=== PATIENT | male | born 1990 | race Caucasian/White ===

== ENCOUNTER 2016-11-09 11:57 | Emergency (ER) | payer BC, OTHER ==
[2016-11-09] MEDS ORDERED: FOLIC ACID 1 MG TAB PO ONE (12:00)
[2016-11-09] MEDS ORDERED: THIAMINE HCL 100 MG TAB PO ONE (12:00)
[2016-11-09] MEDS ORDERED: LORazepam 2 MG/ML INJ IVP ONE (12:00)
--- NOTE | 2016-11-09 12:05 | EDPHY ---
H & P Time Seen by Provider: 11/09/16 11:58 HPI/ROS: CHIEF COMPLAINT: Alcohol withdrawal HISTORY OF PRESENT ILLNESS: 26-year-old male arrives via ambulance from the [facility]. The patient however does not live at the [facility], he had gone to a nearby therapy session and was told to go to [facility] for possible alcohol detoxification assistance. He lives independently with 2 roommates.. States that he has been drinking heavily for the past 1 year and decided to quit suddenly with last drink of alcohol last evening. Complaining of nausea, anxiety, tremor. Denies hallucination. Denies seizure. Denies suicidal or homicidal ideation. REVIEW OF SYSTEMS: A ten point review of systems was performed and is negative with the exception of the items mentioned in the HPI PAST MEDICAL & SURGICAL HISTORY: No pertinent medical or surgical history SOCIAL HISTORY: Pain daily heavy alcohol use in FAMILY HISTORY: No pertinent family history PHYSICAL EXAM (Prior to examination, patient consented to physical exam, hands were washed and my usual and customary physical exam procedures followed) 1) GENERAL: Well-developed, well-nourished, alert and oriented. Appears anxious 2) HEAD: Normocephalic, atraumatic 3) HEENT: Pupils equal, round, reactive to light bilaterally. Sclera anicteric. 4) NECK: Full range of motion, no meningeal signs. 5) LUNGS: Clear auscultation bilaterally, no wheezes, no rhonchi, no retractions. 6) HEART: Regular rate and rhythm, no murmur, no heave, no gallop. 7) ABDOMEN: No guarding, no rebound, no focal tenderness, 8) MUSCULOSKELETAL: tremulous. No peripheral edema or discoloration. 9) BACK: no visual or palpable abnormality. 10) SKIN: No rash, no petechiae. 11) Psychiatric: Patient is oriented X 3, there is no agitation. He appears anxious. DIFFERENTIAL DIAGNOSIS: in no particular include but limited to hepatic encephalopathy, acute alcohol withdrawal, delirium tremens Smoking Status: Never smoked Constitutional: Initial Vital Signs Temperature (C) 36.8 C 11/09/16 11:57 Heart Rate 69 11/09/16 11:57 Respiratory Rate 20 11/09/16 11:57 Blood Pressure 137/80 H 11/09/16 11:57 O2 Sat (%) 100 11/09/16 11:57 O2 Delivery Mode Room Air Allergies/Adverse Reactions: No Known Allergies Allergy (Verified 11/09/16 12:08) Home Medications: Medication Instructions Recorded Lexapro 11/09/16 MDM/Departure - MDM Medications Given: Discontinued Medications Folic Acid (Folic Acid) 1 mg PO EDNOW ONE Stop: 11/09/16 12:01 Last Admin: 11/09/16 12:11 Dose: 1 mg Lorazepam (Ativan Injection) 2 mg IVP EDNOW ONE Stop: 11/09/16 12:01 Last Admin: 11/09/16 12:11 Dose: 2 mg Thiamine HCl (Vitamin B-1) 100 mg PO EDNOW ONE Stop: 11/09/16 12:01 Last Admin: 11/09/16 12:11 Dose: 100 mg ED Course/Re-evaluation: Patient was re-evaluated with serial exams most recently at 1:10 p.m. after 2 mg of IV Ativan. He is feeling improvement in symptoms. Heart rate in the 60s 70s, tremor has resolved. No hallucination. No seizure. Doubt delirium tremens. We discussed options including discharge home or [facility] with [facility]. He would like to [facility]. - Depart Disposition: Home, Routine, Self-Care Clinical Impression: Alcohol withdrawal Qualifiers: Complication of substance-induced condition: uncomplicated Qualified Code(s): F10.230 - Alcohol dependence with withdrawal, uncomplicated Condition: Good Instructions: Alcohol Withdrawal (ED) Referrals: [facility] [Outside] - As per Instructions
[2016-11-09 12:10] VITALS: PULSE 69
[2016-11-09] MEDS ORDERED: CHLORDIAZEPOXIDE 25MG PREPK#6 BTL TAKEHOME ONE (13:19)
[2016-11-09 13:27] VITALS: BP 121/76; RESP 16; TEMP 98.6; O2SAT 94
== END 2016-11-09 13:46 | disposition home or self-care (01) ==
LOC: EDUNIT#
DX: F10.230 Alcohol dependence with withdrawal, uncomplicated (principal)
CPT/HCPCS: 96374; J2060

== ENCOUNTER 2017-01-18 23:27 | Emergency (ER) | payer BC ==
[2017-01-18 23:33] VITALS: TEMP 98.2
[2017-01-19] MEDS ORDERED: chlordiazePOXIDE 25 MG CAP PO ONE (00:10)
[2017-01-19] MEDS ORDERED: LORazepam 2 MG/ML INJ IVP ONE ×2 (00:10→02:28)
[2017-01-19] MEDS ORDERED: NS 1,000 ML IV ONE (00:10)
[2017-01-19 00:33] LABS: % IMMATURE GRANULYOCYTES 0.2 % (0.0-1.1); ABSOLUTE IMMATURE GRANULOCYTES 0.01 10^3/uL (0.00-0.10); ADD DIFF? NO; ADD MORPH? NO; ADD SCAN? NO; ATYPICAL LYMPHOCYTE FLAG 0 (0-99); FRAGMENT RBC FLAG 0 (0-99); HEMATOCRIT 44.7 % (40.0-51.0); HEMOGLOBIN 16.2 g/dL (13.7-17.5); LEFT SHIFT FLG 0 (0-99); LIPEMIA HEMOLYSIS FLAG 90 (0-99); MEAN CELL HEMOGLOBIN 32.3 pg (27.9-34.1); MEAN CELL HEMOGLOBIN CONCENTR. 36.2 g/dL (32.4-36.7); MEAN PLATELET VOLUME 9.5 fL (8.7-11.7); PLATELET CLUMPS FLAG 0 (0-99); PLATELET COUNT 224 10^3/uL (150-400); RED BLOOD CELL COUNT 5.02 10^6/uL (4.40-6.38)
[2017-01-19 00:50] LABS: ALANINE AMINOTRANSFERASE 109 IU/L (21-72); ALBUMIN 4.8 g/dL (3.5-5.0); ALKALINE PHOSPHATASE 70 IU/L (38-126); ANION GAP 23 mEq/L (8-16); ASPARTATE AMINOTRANSFERASE 149 IU/L (17-59); BILIRUBIN,TOTAL 1.1 mg/dL (0.1-1.4); CALCIUM 9.7 mg/dL (8.5-10.4); CARBON DIOXIDE 15 mEq/l (22-31); CHLORIDE 103 mEq/L (97-110); CREATININE 0.8 mg/dL (0.7-1.3); GLOMERULAR FILTRATION RATE > 60; GLUCOSE 103 mg/dL (70-100); POTASSIUM 4.5 mEq/L (3.5-5.2); SODIUM 141 mEq/L (134-144); TOTAL PROTEIN 7.1 g/dL (6.3-8.2)
[2017-01-19] MEDS ORDERED: 1/2 NS IV SCH (01:15)
[2017-01-19] MEDS ORDERED: D5W IV SCH (01:15)
[2017-01-19] MEDS ORDERED: CHLORDIAZEPOXIDE 25MG PREPK#6 BTL TAKEHOME ONE (03:40)
[2017-01-19 03:41] VITALS: BP 140/82; PULSE 76; RESP 16; O2SAT 95
--- NOTE | 2017-01-19 03:45 | EDPHY ---
H & P Stated Complaint: med clear for detox Time Seen by Provider: 01/19/17 00:18 HPI/ROS: HPI The patient presents with concern for alcohol withdrawal, his last drink was earlier today and he drinks about half a L of hard alcohol daily. He has history of prior withdrawal and says he feels shaky and anxious, those denies palpitations. His symptoms have been constant and getting progressively worse. He would like to go to the [facility].. He has not had any seizure. REVIEW OF SYSTEMS Constitutional: No fever, no chills. Eyes: No discharge. ENT: No sore throat. Cardiovascular: No chest pain, no palpitations. Respiratory: No cough, no shortness of breath. Gastrointestinal: No abdominal pain, no vomiting. Genitourinary: No hematuria. Musculoskeletal: No back pain. Skin: No rashes. Neurological: No headache. PMHx: History of alcohol withdrawal Soc Hx: Alcohol abuse PHYSICAL General Appearance: Alert, no distress Eyes: Pupils equal and round no pallor or injection ENT, Mouth: Mucous membranes moist Respiratory: There are no retractions, lungs are clear to auscultation Cardiovascular: Regular rate and rhythm Gastrointestinal: Abdomen is soft and non-tender, no masses, bowel sounds normal Neurological: A&O, moves all extremities, hand tremor is present Skin: Warm and dry, no rashes Musculoskeletal: Neck is supple non tender Extremities: symmetrical, full range of motion Psychiatric: Patient is oriented X 3, there is no agitation Source: Patient Exam Limitations: No limitations - Personal History Current Tetanus/Diphtheria Vaccine: Unsure Current Tetanus Diphtheria and Acellular Pertussis (TDAP): Unsure - Medical/Surgical History Hx Asthma: No Hx Chronic Respiratory Disease: No Hx Diabetes: No Hx Cardiac Disease: No Hx Renal Disease: No Hx Cirrhosis: No Hx Alcoholism: Yes Hx HIV/AIDS: No Hx Splenectomy or Spleen Trauma: No Other PMH: anxiety, ETOH - Social History Smoking Status: Never smoked Constitutional: Initial Vital Signs Temperature (C) 36.8 C 01/18/17 23:31 Heart Rate 92 01/18/17 23:31 Respiratory Rate 18 01/18/17 23:31 Blood Pressure 140/75 H 01/18/17 23:31 O2 Sat (%) 97 01/18/17 23:31 O2 Delivery Mode Room Air Allergies/Adverse Reactions: No Known Allergies Allergy (Verified 01/18/17 23:31) Home Medications: Medication Instructions Recorded Lexapro 11/09/16 Medical Decision Making Differential Diagnosis: This is a 26-year-old male with history of alcohol abuse who presents with symptoms of alcohol withdrawal after stopping drinking his usual 0.5 L of alcohol daily. He does have a hand tremor on exam and states that he is feeling anxious. Differential diagnosis includes alcohol withdrawal, electrolyte disturbance, alcoholic ketoacidosis, pancreatitis. In the emergency room, the patient was given IV fluids. He required several doses of Ativan IV and received Librium by mouth. Labs were checked and did reveal anion gap acidosis thought to be related to alcoholic ketoacidosis. Because of this he was switched to D5 NS. He was able to tolerate fluids by mouth as well. He did have a transaminitis which I attribute to his alcohol use. Repeat chemistries show closing of his anion gap. Given that he is able to tolerate fluids and food by mouth, he is suitable for discharge. [facility] is [facility] the [facility] and we will send him with Librium. - Data Points Laboratory Results: Laboratory Results 01/19/17 00:25 01/19/17 00:25 Medications Given: Discontinued Medications Chlordiazepoxide (Librium 25 Mg Prepack#6) 1 btl TAKEHOME EDNOW ONE Stop: 01/19/17 03:41 Last Admin: 01/19/17 03:46 Dose: 1 btl Chlordiazepoxide HCl (Librium) 50 mg PO EDNOW ONE Stop: 01/19/17 00:11 Last Admin: 01/19/17 00:20 Dose: 50 mg Sodium Chloride (Ns) 1,000 mls @ 0 mls/hr IV ONCE ONE; Wide Open PRN Reason: Protocol Stop: 01/19/17 00:11 Last Admin: 01/19/17 00:20 Dose: 1,000 mls Dextrose/Sodium Chloride (D5w 1/2 Ns) 2,000 mls @ 1,000 mls/hr IV CONT YELENA Stop: 07/18/17 01:14 Last Admin: 01/19/17 01:26 Dose: 2,000 mls Lorazepam (Ativan Injection) 1 mg IVP EDNOW ONE Stop: 01/19/17 00:11 Last Admin: 01/19/17 00:21 Dose: 1 mg Lorazepam (Ativan Injection) 1 mg IVP EDNOW ONE Stop: 01/19/17 02:29 Last Admin: 01/19/17 02:32 Dose: 1 mg Departure - Departure Disposition: Home, Routine, Self-Care Clinical Impression: Alcohol withdrawal, Alcoholic ketoacidosis, Transaminitis Condition: Good Instructions: Chlordiazepoxide (By mouth), Alcohol Withdrawal (ED) Referrals: [facility] [Outside] - As per Instructions
== END 2017-01-19 04:09 | disposition home or self-care (01) ==
DX: F10.239 Alcohol dependence with withdrawal, unspecified (principal); E87.2 Acidosis; R74.0 Nonspecific elevation of levels of transaminase and lactic acid dehydrogenase [LDH]
CPT/HCPCS: 82947-QW; 96374; J2060

== ENCOUNTER 2017-02-01 15:25 | Emergency (ER) | payer BC ==
[2017-02-01] MEDS ORDERED: chlordiazePOXIDE 25 MG CAP PO ONE (16:20)
--- NOTE | 2017-02-01 16:46 | EDPHY ---
H & P Stated Complaint: ETOH w/d, 1 drink 1 hour [employer] Time Seen by Provider: 02/01/17 15:55 HPI/ROS: CHIEF COMPLAINT: requesting detox HISTORY OF PRESENT ILLNESS: 26-year-old male presents to the emergency department requesting detox. Patient states he has been drinking heavily for the last 2 years. He reports symptoms of alcohol withdrawal with shakiness, nausea. Patient denies history of alcohol withdrawal seizures. Patient reports he has been drinking 10 drinks daily, last drink was 1 hour prior to arrival. He is [facility]. Patient denies auditory or visual hallucinations. Patient denies chest pain or shortness of breath. He denies abdominal pain. REVIEW OF SYSTEMS: A comprehensive 10 point review of systems is otherwise negative aside from elements mentioned in the history of present illness. Source: Patient Exam Limitations: No limitations - Personal History Current Tetanus/Diphtheria Vaccine: Unsure - Medical/Surgical History Hx Asthma: No Hx Chronic Respiratory Disease: No Hx Diabetes: No Hx Cardiac Disease: No Hx Renal Disease: No Hx Cirrhosis: No Hx Alcoholism: Yes Hx HIV/AIDS: No Hx Splenectomy or Spleen Trauma: No Other PMH: anxiety, ETOH - Family History Significant Family History: No pertinent family hx - Social History Smoking Status: Never smoked Alcohol Use: Heavy - Physical Exam Exam: Physical Exam Gen: Alert and Oriented, NAD HEENT: PERRL, moist mucous membranes NECK: no meningismus CV: regular rate and regular rhythm PULM: CTAB, no wheezes ABDOMEN: soft, non tender to palpation, BS present BACK: No CVA tenderness NEURO: Neurologically grossly intact, mild hand tremors, mild tongue fasciculations, steady gait, no auditory or visual hallucinations EXTREMITIES: normal appearing SKIN: no rash or break in skin on exposed skin PSYCH: answers questions appropriately. Constitutional: Initial Vital Signs Temperature (C) 36.5 C 02/01/17 15:30 Heart Rate 100 02/01/17 15:30 Respiratory Rate 18 02/01/17 15:30 Blood Pressure 144/84 H 02/01/17 15:30 O2 Sat (%) 95 02/01/17 15:30 O2 Delivery Mode Room Air Allergies/Adverse Reactions: No Known Allergies Allergy (Verified 01/18/17 23:31) Home Medications: Medication Instructions Recorded Lexapro 11/09/16 Medical Decision Making ED Course/Re-evaluation: Case management has met with this patient and has given resources for detox options. The [facility] be [facility] with a prepack of Librium. The patient has no evidence of delirium tremens, he is given 50 mg of Librium in the emergency department, he has a steady gait and is requesting to go to the [facility]. Differential Diagnosis: Diagnosis considered but not limited to alcohol dependence, alcohol withdrawal, delirium tremens, polysubstance abuse. - Data Points Medications Given: Discontinued Medications Chlordiazepoxide HCl (Librium) 50 mg PO EDNOW ONE Stop: 02/01/17 16:21 Last Admin: 02/01/17 16:34 Dose: 50 mg Departure - Departure Disposition: Home, Routine, Self-Care Clinical Impression: Alcohol dependence Qualifiers: Substance use status: uncomplicated Qualified Code(s): F10.20 - Alcohol dependence, uncomplicated Condition: Good Instructions: Alcohol Dependence (ED), Alcohol Use Disorder (ED) Additional Instructions: 1. Please follow-up with the mental health and detox resources provided in the ED today. 2. [facility] does operate a 24/7 psychiatric crisis unit located at [address] [place] [address]. The telephone number for the 24 hour crisis center is [phone]. 3. Please return to the ED if you are feeling suicidal, having thoughts of harming yourself/others or should you feel unsafe or have worsening symptoms. Referrals: [facility] [Clinic] - As per Instructions
[2017-02-01] MEDS ORDERED: CHLORDIAZEPOXIDE 25MG PREPK#6 BTL TAKEHOME ONE (16:47)
[2017-02-01 16:48] VITALS: TEMP 97.7
[2017-02-01 17:16] VITALS: BP 138/80; PULSE 93; RESP 16; O2SAT 96
== END 2017-02-01 17:15 | disposition home or self-care (01) ==
DX: F10.20 Alcohol dependence, uncomplicated (principal)

== ENCOUNTER 2017-02-21 16:42 | Emergency (ER) | payer BC ==
[2017-02-21] MEDS ORDERED: NS 1,000 ML IV ONE (17:56)
[2017-02-21] MEDS ORDERED: DIAZEPAM 10 MG/2 ML SYR IVP ONE (17:58)
--- NOTE | 2017-02-21 18:31 | EDPHY ---
H & P Time Seen by Provider: 02/21/17 17:22 HPI/ROS: HPI Alcohol withdrawal. 26-year-old male on foot. Patient has a long history of alcohol abuse. Patient reports that his last drink was at 3:00 p.m.. He drinks hard liquor. He reports wanting to get sober. He reports anxiety and alcohol withdrawal symptoms including shaking. He denies any other ingestion. ROS: Constitutional: No fever, no chills. No weakness. As above. Respiratory: No cough. No shortness of breath. Cardiac: No chest pain, no palpitations. Genitourinary: No hematuria. No dysuria or increased frequency with urination. Musculoskeletal: No back pain. No neck pain. No myalgias or arthralgias. Skin: No rashes. Neurological: No headache. No focal weakness or altered sensation. Past medical history: Alcohol abuse. Anxiety. Social history: Nonsmoker. Alcohol abuse. Here by himself. Physical Exam: General Appearance: Alert, anxious. Tremulous. This patient is responding to questions appropriately and in full sentences. This patient appears well- hydrated and well-nourished. Eyes: Pupils equal and round no pallor or injection. No lid edema, erythema or injection. Respiratory: There are no retractions, lungs are clear to auscultation with good air movement bilaterally. Cardiovascular: Regular rate and rhythm. No murmur. Gastrointestinal: Abdomen is soft and nontender, no masses, bowel sounds normal. No focal tenderness at McBurney's point. No Watters sign. Neurological: Motor sensory function is grossly intact. Cranial nerves are normal. Gait is normal. Resting tremor noted. Skin: Warm and dry, no rashes. Musculoskeletal: Neck is supple and nontender. Extremities are symmetrical. All joints range without pain or impingement. Psychiatric: No agitation. No depression. Database: EKG: Imaging: Procedures: Emergency department course: Vital signs reviewed. Patient mildly hypertensive. Vital signs otherwise normal. IV was placed. He was started on IV normal saline. He was given 10 mg of IV Valium initially. 6:35 p.m., patient re-evaluated. Resting comfortably at this time. Feels much better after IV Valium. Pulse oximetry 99% on room air. lunchroom monitor shows a narrow complex sinus rhythm ventricular rate of 77. Patient feels comfortable [facility] to [facility]. We will send him with a Librium prepack which will be administered by the [facility] staff. Follow-up and return to emergency department precautions reviewed with him. All of his questions were answered. He was discharged with a sober ride to the [facility]. Differential Diagnosis: The differential diagnosis on this patient includes but is not limited to alcohol withdrawal. Alcohol abuse. Delirium tremens unlikely. This represents a partial list of diagnoses considered. These considerations are based on history, physical exam, past history, reassessment and diagnostic testing. Smoking Status: Never smoked Constitutional: Initial Vital Signs Temperature (C) 36.9 C 02/21/17 16:46 Heart Rate 90 02/21/17 16:46 Respiratory Rate 18 02/21/17 16:46 Blood Pressure 136/92 H 02/21/17 16:46 O2 Sat (%) 98 02/21/17 16:46 O2 Delivery Mode Room Air Allergies/Adverse Reactions: No Known Allergies Allergy (Verified 02/21/17 16:46) Home Medications: Medication Instructions [facility] 11/09/16 Medical Decision Making - Data Points Medications Given: Discontinued Medications Diazepam (Valium Injection) 10 mg IVP EDNOW ONE Stop: 02/21/17 17:59 Last Admin: 02/21/17 18:01 Dose: 10 mg Sodium Chloride (Ns) 1,000 mls @ 0 mls/hr IV ONCE ONE; Wide Open PRN Reason: Protocol Stop: 02/21/17 17:57 Last Admin: 02/21/17 18:00 Dose: 1,000 mls Departure - Departure Disposition: Home, Routine, Self-Care Clinical Impression: Alcohol withdrawal, Alcohol abuse Condition: Good Instructions: Alcohol Withdrawal (ED) Additional Instructions: Read and follow provided instructions. The [facility] staff will provide you with Librium for alcohol withdrawal symptoms. Take medication as prescribed only. Return to the emergency department for worsening symptoms, seizure or other serious concerns. Referrals: [facility] Detox 24 Hours [Outside] - As per Instructions
[2017-02-21] MEDS ORDERED: CHLORDIAZEPOXIDE 25MG PREPK#6 BTL TAKEHOME ONE (18:33)
[2017-02-21 19:01] VITALS: O2SAT 96
[2017-02-21 19:03] VITALS: BP 130/78; PULSE 81; RESP 18; TEMP 97.9
== END 2017-02-21 19:02 | disposition home or self-care (01) ==
DX: F10.239 Alcohol dependence with withdrawal, unspecified (principal); E86.9 Volume depletion, unspecified
CPT/HCPCS: 96374

== ENCOUNTER 2017-04-15 12:49 | Emergency (ER) | payer BC ==
--- NOTE | 2017-04-15 13:42 | EDPHY ---
H & P Stated Complaint: " i have a problem with alcohol and I have a hard time withdrawing" Time Seen by Provider: 04/15/17 13:42 - Personal History Current Tetanus/Diphtheria Vaccine: Unsure Current Tetanus Diphtheria and Acellular Pertussis (TDAP): Unsure - Medical/Surgical History Hx Asthma: No Hx Chronic Respiratory Disease: No Hx Diabetes: No Hx Cardiac Disease: No Hx Renal Disease: No Hx Cirrhosis: No Hx Alcoholism: Yes Hx HIV/AIDS: No Hx Splenectomy or Spleen Trauma: No Other PMH: anxiety, ETOH - Social History Smoking Status: Never smoked Constitutional: Initial Vital Signs Temperature (C) 37.0 C 04/15/17 12:53 Heart Rate 104 H 04/15/17 12:53 Respiratory Rate 18 04/15/17 12:53 Blood Pressure 136/99 H 04/15/17 12:53 O2 Sat (%) 97 04/15/17 12:53 O2 Delivery Mode Room Air Allergies/Adverse Reactions: No Known Allergies Allergy (Verified 02/21/17 16:46) Home Medications: Medication Instructions Recorded Lexapro 11/09/16 Medical Decision Making ED Course/Re-evaluation: CHIEF COMPLAINT: Would like to detox HISTORY OF PRESENT ILLNESS: The patient is a 26 y/o male with alcoholism requesting help getting into detox for alcohol abuse. He has previously been to detox for rehab three times and says during that time "I basically didn't care and wanted to get out of there." During the second time he tried to cut back on his alcohol use. During his third attempt to get sober he joined and was able to get sober for about a month before relapsing during a toxic relationship. He drinks as much as a half liter of vodka daily during his binging periods. He has been drinking to help himself sleep and drank last night prior to going to the [facility]. His breath alcohol there was 0.19. He started to get withdrawal symptoms so they sent him to the ED for evaluation, but will accept him back there. He has spoken with his employer, friends, and family about his plan to detox right now. He has had alcoholic ketoacidosis and withdrawal seizures in the past. He denies recent benzodiazepine use. REVIEW OF SYSTEMS: A 10 point review of systems was performed and is negative with the exception of the elements mentioned in the history of present illness. PHYSICAL EXAM: HR, BP, O2 Sat, RR. Temp noted General Appearance: Alert, well hydrated, appropriate, and non-toxic appearing. Head: Atraumatic without scalp tenderness or obvious injury Eyes: Pupils equal, round, reactive to light and accommodation, EOMI, no trauma , no injection. Nose: Atraumatic, no rhinorrhea, clear. Throat: Mucus membranes moist. Neck: Supple, nontender, no lymphadenopathy. Respiratory: No retractions, no distress, no wheezes, and no accessory muscle use. Lungs are clear to auscultation bilaterally. Cardiovascular: Regular rate and rhythm, no murmurs, rubs, or gallops. Good capillary refill all extremities. Gastrointestinal: Abdomen is soft, nontender, non-distended, no masses, no rebound, no guarding, no peritoneal signs. Musculoskeletal: Normal active ROM of all extremities, atraumatic. Neurological: Alert, appropriate, and interactive. The patient has non-focal cranial nerves, motor, sensory, and cerebellar exam. Skin: No rashes, good turgor, no nodules on palpation. Past medical history: Alcoholism, alcoholic ketoacidosis, and withdrawal seizures Past surgical history: Denies Family history: Noncontributory Social history: Lives in [place]. Employed. DIFFERENTIAL DIAGNOSIS: The differential diagnosis for the patient's symptoms included but was not limited to alcohol abuse, alcohol withdrawal, polysubstance abuse, depression, anxiety. MEDICAL DECISION MAKING: This is a 26 y/o male who presents requesting help getting into rehab for severe alcohol abuse. His exam is unremarkable. Plan for basic labs and 1mg PO Ativan. He is comfortable being discharged back to the [facility] with Librium. Return precautions discussed. - Data Points Laboratory Results: 04/15/17 04/15/17 14:25 14:25 WBC Pending RBC Pending Hgb Pending Hct Pending MCV Pending MCH Pending MCHC Pending RDW Pending Plt Count Pending MPV Pending Neut % (Auto) Pending Lymph % (Auto) Pending [place] % (Auto) Pending Eos % (Auto) Pending Baso % (Auto) Pending Nucleat RBC Rel Count Pending Absolute Neuts (auto) Pending Absolute Lymphs (auto) Pending Absolute Monos (auto) Pending Absolute Eos (auto) Pending Absolute Basos (auto) Pending Absolute Nucleated RBC Pending Immature Gran % Pending Immature Gran # Pending Sodium Pending Potassium Pending Chloride Pending Carbon Dioxide Pending Anion Gap Pending BUN Pending Creatinine Pending Estimated GFR Pending Glucose Pending Calcium Pending Ethyl Alcohol Pending Medications Given: Discontinued Medications Lorazepam (Ativan Injection) 1 mg IVP EDNOW ONE Stop: 04/15/17 14:02 Last Admin: 04/15/17 14:22 Dose: 1 mg Departure - Departure Disposition: Home, Routine, Self-Care Clinical Impression: Alcohol dependence Qualifiers: Substance use status: uncomplicated Qualified Code(s): F10.20 - Alcohol dependence, uncomplicated Condition: Good Instructions: Alcohol Dependence (ED), Alcohol Use Disorder (ED) Additional Instructions: Go directly to the [facility] for detox. Take Librium as prescribed for alcohol withdrawal symptoms. Consider Vivitrol injections to help manage your alcoholism. Referrals: [facility] Detox 24 Hours [Outside] - As per Instructions Report Scribed for: Jimbo Kaur Report Scribed by: Che Wilhelm Date of Report: 04/15/17 Time of Report: 14:05
[2017-04-15] MEDS ORDERED: LORazepam 2 MG/ML INJ IVP ONE (14:01)
[2017-04-15 15:04] LABS: ANION GAP 19 mEq/L (8-16); CALCIUM 9.5 mg/dL (8.5-10.4); CARBON DIOXIDE 20 mEq/l (22-31); CHLORIDE 101 mEq/L (97-110); CREATININE 0.7 mg/dL (0.7-1.3); ETHANOL SERUM 239 mg/dL (0-10); GLOMERULAR FILTRATION RATE > 60; GLUCOSE 88 mg/dL (70-100); POTASSIUM 3.9 mEq/L (3.5-5.2); SODIUM 140 mEq/L (134-144)
[2017-04-15 15:05] LABS: % IMMATURE GRANULYOCYTES 0.2 % (0.0-1.1); ABSOLUTE IMMATURE GRANULOCYTES 0.01 10^3/uL (0.00-0.10); ADD DIFF? NO; ADD MORPH? NO; ADD SCAN? NO; ATYPICAL LYMPHOCYTE FLAG 0 (0-99); FRAGMENT RBC FLAG 0 (0-99); HEMATOCRIT 45.9 % (40.0-51.0); HEMOGLOBIN 16.7 g/dL (13.7-17.5); LEFT SHIFT FLG 0 (0-99); LIPEMIA HEMOLYSIS FLAG 90 (0-99); MEAN CELL HEMOGLOBIN 32.1 pg (27.9-34.1); MEAN CELL HEMOGLOBIN CONCENTR. 36.4 g/dL (32.4-36.7); MEAN CELL VOLUME 88.1 fL (81.5-99.8); MEAN PLATELET VOLUME 9.4 fL (8.7-11.7); PLATELET CLUMPS FLAG 0 (0-99); PLATELET COUNT 213 10^3/uL (150-400); RED BLOOD CELL COUNT 5.21 10^6/uL (4.40-6.38); RED CELL DISTRIBUTION WIDTH 12.2 % (11.5-15.2)
[2017-04-15] MEDS ORDERED: CHLORDIAZEPOXIDE 25MG PREPK#6 BTL TAKEHOME ONE (15:41)
[2017-04-15 15:52] VITALS: BP 130/85; PULSE 85; RESP 18; TEMP 98.2; O2SAT 95
== END 2017-04-15 16:03 | disposition home or self-care (01) ==
DX: F10.20 Alcohol dependence, uncomplicated (principal)
CPT/HCPCS: 96374; G0480; J2060

== ENCOUNTER 2017-05-25 09:42 | Emergency (ER) | payer BC ==
[2017-05-25 09:50] VITALS: TEMP 97.7
[2017-05-25] MEDS ORDERED: LORazepam 2 MG/ML INJ IVP ONE (10:02)
[2017-05-25] MEDS ORDERED: NS 1,000 ML IV ONE (10:02)
--- NOTE | 2017-05-25 10:06 | EDPHY ---
General Narrative: CHIEF COMPLAINT: Anxiety attack HISTORY OF PRESENT ILLNESS: Patient presents with complaints of anxiety attack. He says that he began feeling very anxious this morning around 630. No chest pain or palpitations with this. This came on suddenly. It has been constant. He still feels this way. He says he is under lot of stress at work, stress from family, and does abuse alcohol. He usually drinks 10 or so drinks a day of vodka. He has also done this today. Last drink was early this morning. He has no seizure-like complaints. Some nausea and anorexia. Says he has not been eating very well in the last 24 hours, but he does normally eat several months today. No chest pain shortness of breath. No cough. No headache. No neck pain or stiffness. No abdominal pain. No rashes. No other associated complaints or modifying factors REVIEW OF SYSTEMS: Ten systems reviewed and are negative unless otherwise noted in the HPI PCP: None SPECIALISTS: None PAST MEDICAL HISTORY: Alcohol abuse, anxiety PAST SURGICAL HISTORY: None SOCIAL HISTORY: Nonsmoker. Daily alcohol use. No drug use. 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 Lives with 2 roommates FAMILY HISTORY: Noncontributory EXAMINATION General Appearance: Alert, no distress, unkempt. Strong odor of alcohol Head: normocephalic, atraumatic Eyes: Pupils equal and round, no conjunctival pallor or injection. EOMs intact. No icterus. No nystagmus ENT, Mouth: Mucous membranes moist. Airway patent. No erythema edema. Neck: Normal inspection, supple, non-tender Respiratory: Lungs are clear to auscultation. No wheezing, rhonchi or crackles Cardiovascular: Regular rate and rhythm. No murmur Gastrointestinal: Abdomen is soft and nontender Back: non-tender, no bony abnormalities Neurological: GCS 15. A&O, nonfocal, strength is symmetric. No tremor. Skin: Warm and dry, no rash. No petechiae or purpura Extremities: Nontender, no pedal edema Psychiatric: Anxious mood. Flat affect. Not suicidal. Not homicidal. DIFFERENTIAL DIAGNOSES: Including but not limited to anxiety reaction, panic attack, dehydration, alcohol abuse, acute alcohol intoxication MDM: 10:03 a.m. Reports of anxiety attack with alcohol abuse, nausea, malaise and decreased intake by mouth. I have ordered laboratory studies, Ativan IV fluid. He is in no acute distress but he does appear to be acutely intoxicated. No evidence of DTs or withdrawal at this time. 11:00 a.m. Patient has received Ativan and is feeling better. He is resting comfortably. Vital signs stable. Laboratory studies pending. 11:45 a.m. Patient re-evaluated. He is sleeping minor the room. He states he is feeling much better. Blood alcohol level is 3 away. Laboratory studies are otherwise unremarkable. I offered transfer to the [facility] [place] versus letting the patient go home with a family member or friend who is not intoxicated. He is declining going to the [facility]. He will have his roommate, to get him. He will be discharged home stable condition with acute alcohol intoxication without complication. Recommend follow up with the on-call primary care physician to establish. ED precautions as discussed. - History Smoking Status: Never smoked - Objective Vital Signs: Initial Vital Signs Temperature (C) 97.7 F 05/25/17 09:48 Heart Rate 92 05/25/17 09:48 Respiratory Rate 18 05/25/17 09:48 Blood Pressure 147/97 H 05/25/17 09:48 O2 Sat (%) 98 05/25/17 09:48 O2 Delivery Mode Room Air Allergies/Adverse Reactions: No Known Allergies Allergy (Verified 05/25/17 09:47) Home Medications: Medication Instructions Recorded Lexapro 11/09/16 Laboratory Results: Laboratory Results 05/25/17 10:23 05/25/17 10:23 05/25/17 05/25/17 10:23 10:23 WBC 7.37 10^3/uL 10^3/uL (3.80-9.50) RBC 5.35 10^6/uL 10^6/uL (4.40-6.38) Hgb 17.1 g/dL g/dL (13.7-17.5) Hct 48.1 % % (40.0-51.0) MCV 89.9 fL fL (81.5-99.8) MCH 32.0 pg pg (27.9-34.1) MCHC 35.6 g/dL g/dL (32.4-36.7) RDW 12.7 % % (11.5-15.2) Plt Count 214 10^3/uL 10^3/uL (150-400) MPV 8.9 fL fL (8.7-11.7) Neut % (Auto) 70.2 % % (39.3-74.2) Lymph % (Auto) 18.7 % % (15.0-45.0) [place] % (Auto) 7.3 % % (4.5-13.0) Eos % (Auto) 2.3 % % (0.6-7.6) Baso % (Auto) 1.1 % % (0.3-1.7) Nucleat RBC Rel Count 0.0 % % (0.0-0.2) Absolute Neuts (auto) 5.17 10^3/uL 10^3/uL (1.70-6.50) Absolute Lymphs (auto) 1.38 10^3/uL 10^3/uL (1.00-3.00) Absolute Monos (auto) 0.54 10^3/uL 10^3/uL (0.30-0.80) Absolute Eos (auto) 0.17 10^3/uL 10^3/uL (0.03-0.40) Absolute Basos (auto) 0.08 10^3/uL 10^3/uL (0.02-0.10) Absolute Nucleated RBC 0.00 10^3/uL 10^3/uL (0-0.01) Immature Gran % 0.4 % % (0.0-1.1) Immature Gran # 0.03 10^3/uL 10^3/uL (0.00-0.10) Sodium 145 mEq/L H mEq/L (134-144) Potassium 3.8 mEq/L mEq/L (3.5-5.2) Chloride 99 mEq/L mEq/L (97-110) Carbon Dioxide 14 mEq/l L mEq/l (22-31) Anion Gap 32 mEq/L H mEq/L (8-16) BUN 9 mg/dL mg/dL (7-23) Creatinine 0.8 mg/dL mg/dL (0.7-1.3) Estimated GFR > 60 Glucose 82 mg/dL mg/dL (70-100) Calcium 9.3 mg/dL mg/dL (8.5-10.4) Lipase 173 IU/L IU/L (23-300) Ethyl Alcohol 308 mg/dL H mg/dL (0-10) Medications Given: Discontinued Medications Sodium Chloride (Ns) 1,000 mls @ 0 mls/hr IV EDNOW ONE; Wide Open PRN Reason: Protocol Stop: 05/25/17 10:03 Last Admin: 05/25/17 10:19 Dose: 1,000 mls Lorazepam (Ativan Injection) 1 mg IVP EDNOW ONE Stop: 05/25/17 10:03 Last Admin: 05/25/17 10:23 Dose: 1 mg Departure - Departure Disposition: Home, Routine, Self-Care Clinical Impression: Anxiety reaction Acute alcohol intoxication Qualifiers: Complication of substance-induced condition: uncomplicated Qualified Code(s): F10.929 - Alcohol use, unspecified with intoxication, unspecified Condition: Good Instructions: Alcohol Intoxication (ED), Abuse of Alcohol (ED), Anxiety (ED), Anxiolysis in Adults (ED) Additional Instructions: 1. Contact the on-call primary care physician to establish 2. Return to emergency department for any nausea, vomiting, tremor 3. Return emergency department for any chest pain palpitations Referrals: Lennox Hudson DO [Doctor of Osteopathy] - As per Instructions [facility] [Clinic] - As per Instructions
[2017-05-25 10:30] LABS: % IMMATURE GRANULYOCYTES 0.4 % (0.0-1.1); ABSOLUTE IMMATURE GRANULOCYTES 0.03 10^3/uL (0.00-0.10); ADD DIFF? NO; ADD MORPH? NO; ADD SCAN? NO; ATYPICAL LYMPHOCYTE FLAG 0 (0-99); FRAGMENT RBC FLAG 0 (0-99); HEMATOCRIT 48.1 % (40.0-51.0); HEMOGLOBIN 17.1 g/dL (13.7-17.5); LEFT SHIFT FLG 0 (0-99); LIPEMIA HEMOLYSIS FLAG 90 (0-99); MEAN CELL HEMOGLOBIN CONCENTR. 35.6 g/dL (32.4-36.7); MEAN CELL VOLUME 89.9 fL (81.5-99.8); MEAN PLATELET VOLUME 8.9 fL (8.7-11.7); PLATELET CLUMPS FLAG 10 (0-99); PLATELET COUNT 214 10^3/uL (150-400); RED BLOOD CELL COUNT 5.35 10^6/uL (4.40-6.38); RED CELL DISTRIBUTION WIDTH 12.7 % (11.5-15.2)
[2017-05-25 10:43] LABS: ANION GAP 32 mEq/L (8-16); CALCIUM 9.3 mg/dL (8.5-10.4); CARBON DIOXIDE 14 mEq/l (22-31); CHLORIDE 99 mEq/L (97-110); CREATININE 0.8 mg/dL (0.7-1.3); GLOMERULAR FILTRATION RATE > 60; GLUCOSE 82 mg/dL (70-100); POTASSIUM 3.8 mEq/L (3.5-5.2); SODIUM 145 mEq/L (134-144)
[2017-05-25 10:49] VITALS: O2SAT 95
[2017-05-25 10:59] LABS: ETHANOL SERUM 308 mg/dL (0-10)
[2017-05-25 13:45] VITALS: BP 128/94; PULSE 67; RESP 16
== END 2017-05-25 13:46 | disposition home or self-care (01) ==
DX: F41.1 Generalized anxiety disorder (principal); F10.929 Alcohol use, unspecified with intoxication, unspecified; E86.9 Volume depletion, unspecified
CPT/HCPCS: 96374; G0480; J2060

== ENCOUNTER 2017-05-27 20:06 | Emergency (ER) | payer BC ==
[2017-05-27] MEDS ORDERED: NS 1,000 ML IV ONE (20:23)
[2017-05-27] MEDS ORDERED: LORazepam 2 MG/ML INJ IVP ONE ×2 (20:23→21:04)
--- NOTE | 2017-05-27 20:23 | EDPHY ---
General Narrative: CHIEF COMPLAINT: Alcohol withdrawal HISTORY OF PRESENT ILLNESS: Patient complains of alcohol withdrawal. Complains of alcohol abuse with intentions to stop drinking. He did so abruptly on Tuesday. Last intake was Tuesday. I took care of the patient that day. At that time, his serum alcohol was 308. He declined to go to the [facility], thus he was discharged home with his roommate. He decided not to have anything else to drink. Later that evening and into , he began to feel shaky, diaphoretic and very thirsty. Despite this he is very nauseated and unable to eat or drink anything. He has had no chest pain or shortness of breath. He has felt very shaky, to the point that he had 2 shots of liquor 4:00 p.m. today. This has improved his symptoms but not alleviated them. No thoughts of self-harm. Contacted his parents. They asked him to present for detox at the [facility]. Following this he plans to fly back home to [place] for outpatient care. REVIEW OF SYSTEMS: Ten systems reviewed and are negative unless otherwise noted in the HPI PCP: None locally SPECIALISTS: None PAST MEDICAL HISTORY: Alcohol abuse PAST SURGICAL HISTORY: None SOCIAL HISTORY: Nonsmoker. Daily alcohol use. 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 Originally from [place] FAMILY HISTORY: Noncontributory EXAMINATION General Appearance: Alert, no distress, unkempt Head: normocephalic, atraumatic Eyes: Pupils equal and round, no conjunctival pallor or injection. No icterus ENT, Mouth: Mucous membranes dry. Uvula is midline. Airway is patent Neck: Normal inspection, supple, non-tender. Respiratory: Lungs are clear to auscultation. No wheezing, rhonchi or crackles Cardiovascular: Regular rate rhythm. Heart rate is 99 beats per minute. Gastrointestinal: Abdomen is soft and nontender. No distention. No tympany rigidity Back: non-tender, no bony abnormalities Neurological: GCS 15. Cranial nerves 2-12 grossly intact. A&O, nonfocal, mild resting tremor. Strength is symmetric. No pronator drift. Skin: Warm and dry, no rash. No petechiae or purpura Extremities: Nontender, no pedal edema Psychiatric: Mood and affect normal DIFFERENTIAL DIAGNOSES: Including but not limited to alcohol withdrawal, DTs, alcohol abuse, dehydration MDM: 8:22 p.m. Alcoholism with concern for alcohol withdrawal. He did have 2 alcoholic drinks earlier today. Does not appear to be in DTs. No seizure-like activity thus far. He does appear to be mildly dehydrated, and he has not been eating or drinking well the past 2 days. I have ordered IV fluid and Ativan. Plan for disposition to the [facility] with Librium protocol. 8:50 p.m. Patient re-evaluated. Resting comfortably. IV Ativan IV fluid infusing. Still agreeable with disposition to the [facility] for detox with Librium. Breathalyzer value of 0.062. 9:05 p.m. Patient has received fluid and Ativan. He is been discharged to the [facility] with Librium protocol. We discussed ED precautions. We discussed continuing with follow-up outpatient with his family. I offered correctional casework specialist resources for him to be followed up with and he has declined. He says that his parents have arranged for outpatient addiction recovery upon return to [place]. - History Smoking Status: Never smoked - Objective Vital Signs: Initial Vital Signs Temperature (C) 98.4 F 05/27/17 20:10 Heart Rate 92 05/27/17 20:10 Respiratory Rate 18 05/27/17 20:10 Blood Pressure 149/102 H 05/27/17 20:10 O2 Sat (%) 96 05/27/17 20:10 O2 Delivery Mode Room Air Allergies/Adverse Reactions: No Known Allergies Allergy (Verified 05/27/17 20:10) Home Medications: Medication Instructions Recorded Lexapro 11/09/16 Medications Given: Discontinued Medications Chlordiazepoxide (Librium 25 Mg Prepack#6) 1 btl TAKEHOME EDNOW ONE Stop: 05/27/17 21:04 Last Admin: 05/27/17 21:13 Dose: 1 btl Sodium Chloride (Ns) 1,000 mls @ 0 mls/hr IV EDNOW ONE; Wide Open PRN Reason: Protocol Stop: 05/27/17 20:24 Last Admin: 05/27/17 20:33 Dose: 1,000 mls Lorazepam (Ativan Injection) 1 mg IVP EDNOW ONE Stop: 05/27/17 20:24 Last Admin: 05/27/17 20:34 Dose: 1 mg Lorazepam (Ativan Injection) 1 mg IVP EDNOW ONE Stop: 05/27/17 21:05 Last Admin: 11/24/17 21:14 Dose: 1 mg Departure - Departure Disposition: Other Psych, Not [place] Clinical Impression: Alcohol abuse Acute alcohol intoxication Qualifiers: Complication of substance-induced condition: uncomplicated Qualified Code(s): F10.929 - Alcohol use, unspecified with intoxication, unspecified Condition: Good Instructions: Chlordiazepoxide (By mouth), Alcohol Intoxication (ED), Abuse of Alcohol (ED) Additional Instructions: 1. [facility] for 24 hours with Librium protocol. 2. Follow up with the on-call primary care physician as discussed. Information provided 3. ED precautions as discussed Referrals: Santos Godoy DO [Medical Doctor] - As per Instructions [facility] [Outside] - As per Instructions
[2017-05-27] MEDS ORDERED: CHLORDIAZEPOXIDE 25MG PREPK#6 BTL TAKEHOME ONE (21:03)
[2017-05-27 21:27] VITALS: BP 141/97; PULSE 89; RESP 17; TEMP 99.1; O2SAT 91
== END 2017-05-27 21:25 ==
DX: F10.120 Alcohol abuse with intoxication, uncomplicated (principal); E86.9 Volume depletion, unspecified
CPT/HCPCS: 96374; J2060

== ENCOUNTER 2017-07-08 10:43 | Emergency (ER) | payer MEDICAID ==
[2017-07-08 10:51] VITALS: BP 153/102; PULSE 87; RESP 16; TEMP 97.9; O2SAT 96
[2017-07-08] MEDS ORDERED: CHLORDIAZEPOXIDE 25MG PREPK#6 BTL TAKEHOME ONE (11:16)
--- NOTE | 2017-07-08 11:18 | EDPHY ---
General Narrative: CHIEF COMPLAINT: Alcohol detox HISTORY OF PRESENT ILLNESS: Patient presents with complaint of wanting to detox from alcohol. He admits to heavy alcohol use, 2 L per day of vodka. This has been going on for years. He said his last intake of alcohol was 1 hr ago. He says he has ready for detox from alcohol. I have evaluated the patient for the same complaint several times in the past. He does have a very strong odor of alcohol about him. He denies any complaints other than wanting to detox. No seizure-like activity. No fever. No difficulty performing his daily activities. He is still eating and drinking. No other associated complaints or modifying factors. REVIEW OF SYSTEMS: Ten systems reviewed and are negative unless otherwise noted in the HPI PCP: None SPECIALISTS: None PAST MEDICAL HISTORY: Alcohol abuse, depression PAST SURGICAL HISTORY: None SOCIAL HISTORY: No smoker. Daily alcohol ingestion of 2 L of vodka. Last intake 1 hr ago. FAMILY HISTORY: Noncontributory EXAMINATION General Appearance: Alert, no distress Head: normocephalic, atraumatic Eyes: Pupils equal and round, no conjunctival pallor or injection ENT, Mouth: Mucous membranes moist Neck: Normal inspection, supple, non-tender Respiratory: Lungs are clear to auscultation Cardiovascular: Regular rate and rhythm. No murmur Gastrointestinal: Abdomen is soft and nontender Back: non-tender, no bony abnormalities Neurological: GCS 15. Cranial nerves 2-12 grossly intact A&O, nonfocal, normal gait. No pronator drift. Normal finger to nose Skin: Warm and dry, no rash Extremities: Nontender, no pedal edema Psychiatric: Flat affect. No SI. No HI. No tremor. DIFFERENTIAL DIAGNOSES: Including but not limited to acute alcohol intoxication, chronic alcohol use, alcohol abuse, withdrawal, detox MDM: 11:15 a.m. Acute alcohol intoxication with alcohol abuse. The patient is wanting detoxification. He is agreeable to going to the [facility]. He is awake alert no acute distress. He is not delirious or encephalopathic. He exhibits no DTs. Vital signs are within normal limits. He does have a strong odor of alcohol with recent alcohol ingestion less than 1 hr ago. I do feel that he is stable for transport to the [facility] for detox as he is in no acute distress and willing to do so. He will be provided a Librium taper per protocol. He will be sent directly to the [facility] by cab with no stops. He is comfortable this plan and discharged in stable condition. SUPERVISION: Patient was independently examined, but I discussed the case with my primary supervising physician Dr. Tatum. - History Smoking Status: Never smoked - Objective Vital Signs: Initial Vital Signs Temperature (C) 97.9 F 07/08/17 10:49 Heart Rate 87 07/08/17 10:49 Respiratory Rate 16 07/08/17 10:49 Blood Pressure 153/102 H 07/08/17 10:49 O2 Sat (%) 96 07/08/17 10:49 O2 Delivery Mode Room Air Allergies/Adverse Reactions: No Known Allergies Allergy (Verified 07/08/17 10:49) Home Medications: Medication Instructions Recorded Lexapro 11/09/16 Medications Given: Discontinued Medications Chlordiazepoxide (Librium 25 Mg Prepack#6) 1 btl TAKEHOME EDNOW ONE Stop: 07/08/17 11:17 Last Admin: 07/08/17 11:30 Dose: 1 btl Departure - Departure Disposition: Home, Routine, Self-Care Clinical Impression: Acute alcohol intoxication Qualifiers: Complication of substance-induced condition: uncomplicated Qualified Code(s): F10.929 - Alcohol use, unspecified with intoxication, unspecified Alcohol dependence Qualifiers: Substance use status: with intoxication Complication of substance-induced condition: with unspecified complication Qualified Code(s): F10.229 - Alcohol dependence with intoxication, unspecified Condition: Good Instructions: Chlordiazepoxide (By mouth), Alcohol Intoxication (ED), Abuse of Alcohol (ED) Referrals: [facility] [Outside] - As per Instructions Dominique Wilkins MD [Medical Doctor] - As per Instructions
--- NOTE | 2017-07-08 11:38 | ASMTCMCOM ---
CM Note CM Note Notes: Pt requested detox. SW called [facility] to inform. Pt provided voucher for cab to [facility]. Date Signed: 07/08/2017 11:38 AM Electronically Signed By:Nely Golden LCSW
== END 2017-07-08 11:40 | disposition home or self-care (01) ==
DX: F10.229 Alcohol dependence with intoxication, unspecified (principal)

== ENCOUNTER 2017-09-05 03:12 | Emergency (ER) | payer MEDICAID ==
--- NOTE | 2017-09-05 03:18 | EDPHY ---
H & P Time Seen by Provider: 09/05/17 03:20 HPI/ROS: HPI CHIEF COMPLAINT: Anxiety, alcohol withdrawal HISTORY OF PRESENT ILLNESS: This patient is a 27-year-old male who presents emergency room by private vehicle for anxiety, feeling panicky, additionally states he thinks he may be in alcohol withdrawal. Reports to me his last drink was prior to arrival around 2:30 a.m.. States he drank today every 2 hr liquor. He states he felt very anxious and was coughing this evening. Denies chest pain. Denies productive cough. He woke up around 2:00 a.m. Feeling anxious and panicky. Decided come the emergency room for evaluation. He thinks that he may be an alcohol draw but states that he drank continuously throughout the day every 2 hr and last drink right prior to arrival. Upon arrival to the emergency room the patient does appear intoxicated. He does state he is anxious. Denies any pain anywhere. Vital signs are noted to be stable afebrile no hypoxia. Past Medical History: Alcoholism, anxiety Past Surgical History: No recent surgery Social History: Daily alcohol use. Family History: Noncontributory ROS REVIEW OF SYSTEMS: A comprehensive 10 point review of systems is otherwise negative aside from elements mentioned in the history of present illness. Exam Constitutional appears nontoxic triage nursing summary reviewed, vital signs reviewed, awake/alert. Vital signs stable at triage. Eyes normal conjunctivae and sclera, EOMI, PERRLA. HENT normal inspection, atraumatic, moist mucus membranes, no epistaxis, neck supple/ no meningismus, no raccoon eyes. Respiratory clear to auscultation bilaterally, normal breath sounds, no respiratory distress, no wheezing. Cardiovascular rate normal, regular rhythm, no murmur, no edema, distal pulses normal. Gastrointestinal soft, non-tender, no rebound, no guarding, normal bowel sounds, no distension, no pulsatile mass. Genitourinary no CVA tenderness. Musculoskeletal no midline vertebral tenderness, full range of motion, no calf swelling, no tenderness of extremities, no meningismus, good pulses, neurovascularly intact. Skin pink, warm, & dry, no rash, skin atraumatic. Neurologic awake, alert and oriented x 3, AAOx3, moves all 4 extremities equally, motor intact, sensory intact, CN II-XII intact, normal cerebellar, normal vision, normal speech. Psychiatric anxious Heme/Lymph/Immune no lymphadenopathy. Differential Diagnosis: Acute anxiety, panic attack, electrolyte disturbance, dehydration, alcohol intoxication, alcohol withdrawal Medical Decision Making:Plan for this patient IV establishment with 0.5 mg IV Ativan for anxiety, check serum alcohol level, check basic blood work electrolytes, magnesium, gentle IV hydration. Re-evaluate. Check serum alcohol level. Re-evaluation: 0441: Serum alcohol level 271. 0445: Patient re-evaluated this time resting comfortably no acute distress. Denies any complaints at this time feels better after IV fluids and 0.5 mg IV Ativan. His anxiety is well controlled. He would like to go home. I did offer him to go to detox. Will allowed to go home if he is safe ride. Return precautions discussed with him. Source: Patient - Medical/Surgical History Hx Asthma: No Hx Chronic Respiratory Disease: No Hx Diabetes: No Hx Cardiac Disease: No Hx Renal Disease: No Hx Cirrhosis: No Hx Alcoholism: Yes Hx HIV/AIDS: No Hx Splenectomy or Spleen Trauma: No Other PMH: anxiety, ETOH - Social History Smoking Status: Never smoked Constitutional: Initial Vital Signs Temperature (C) 36.7 C 09/05/17 03:19 Heart Rate 87 09/05/17 03:19 Respiratory Rate 18 09/05/17 03:19 Blood Pressure 165/84 H 09/05/17 03:19 O2 Sat (%) 95 09/05/17 03:19 O2 Delivery Mode Room Air Allergies/Adverse Reactions: No Known Allergies Allergy (Verified 09/05/17 03:26) Home Medications: Medication Instructions Recorded Lexapro 11/09/16 Medical Decision Making - Data Points Laboratory Results: Laboratory Results 09/05/17 03:30 09/05/17 03:30 09/05/17 09/05/17 03:30 03:30 WBC 6.27 10^3/uL 10^3/uL (3.80-9.50) RBC 5.33 10^6/uL 10^6/uL (4.40-6.38) Hgb 16.9 g/dL g/dL (13.7-17.5) Hct 46.9 % % (40.0-51.0) MCV 88.0 fL fL (81.5-99.8) MCH 31.7 pg pg (27.9-34.1) MCHC 36.0 g/dL g/dL (32.4-36.7) RDW 11.9 % % (11.5-15.2) Plt Count 196 10^3/uL 10^3/uL (150-400) MPV 8.8 fL fL (8.7-11.7) Neut % (Auto) 38.0 % L % (39.3-74.2) Lymph % (Auto) 45.9 % H % (15.0-45.0) [place] % (Auto) 10.0 % % (4.5-13.0) Eos % (Auto) 4.8 % % (0.6-7.6) Baso % (Auto) 1.1 % % (0.3-1.7) Nucleat RBC Rel Count 0.0 % % (0.0-0.2) Absolute Neuts (auto) 2.38 10^3/uL 10^3/uL (1.70-6.50) Absolute Lymphs (auto) 2.88 10^3/uL 10^3/uL (1.00-3.00) Absolute Monos (auto) 0.63 10^3/uL 10^3/uL (0.30-0.80) Absolute Eos (auto) 0.30 10^3/uL 10^3/uL (0.03-0.40) Absolute Basos (auto) 0.07 10^3/uL 10^3/uL (0.02-0.10) Absolute Nucleated RBC 0.00 10^3/uL 10^3/uL (0-0.01) Immature Gran % 0.2 % % (0.0-1.1) Immature Gran # 0.01 10^3/uL 10^3/uL (0.00-0.10) Sodium 143 mEq/L mEq/L (135-145) Potassium 4.4 mEq/L mEq/L (3.5-5.2) Chloride 102 mEq/L mEq/L (97-110) Carbon Dioxide 22 mEq/l mEq/l (22-31) Anion Gap 19 mEq/L H mEq/L (8-16) BUN 8 mg/dL mg/dL (7-23) Creatinine 0.7 mg/dL mg/dL (0.7-1.3) Estimated GFR > 60 Glucose 93 mg/dL mg/dL (70-100) Calcium 9.4 mg/dL mg/dL (8.5-10.4) Magnesium 1.9 mg/dL mg/dL (1.6-2.3) Total Bilirubin 0.5 mg/dL mg/dL (0.1-1.4) Conjugated Bilirubin 0.2 mg/dL mg/dL (0.0-0.5) Unconjugated Bilirubin 0.3 mg/dL mg/dL (0.0-1.1) AST 80 IU/L H IU/L (17-59) ALT 71 IU/L IU/L (21-72) Alkaline Phosphatase 74 IU/L IU/L (38-126) Total Protein 7.3 g/dL g/dL (6.3-8.2) Albumin 4.6 g/dL g/dL (3.5-5.0) Ethyl Alcohol 274 mg/dL H mg/dL (0-10) Medications Given: Discontinued Medications Sodium Chloride (Ns) 1,000 mls @ 0 mls/hr IV EDNOW ONE; Wide Open PRN Reason: Protocol Stop: 09/05/17 03:28 Last Admin: 09/05/17 03:35 Dose: 1,000 mls Lorazepam (Ativan Injection) 1 mg IVP EDNOW ONE Stop: 09/05/17 03:29 Last Admin: 09/05/17 03:36 Dose: 1 mg Departure - Departure Disposition: Home, Routine, Self-Care Clinical Impression: Anxiety Alcoholic intoxication Qualifiers: Complication of substance-induced condition: uncomplicated Qualified Code(s): F10.920 - Alcohol use, unspecified with intoxication, uncomplicated Condition: Good Instructions: Alcohol Intoxication (ED), Abuse of Alcohol (ED) Referrals: NONE *PRIMARY CARE P,. [Primary Care Provider] - As per Instructions
[2017-09-05 03:25] VITALS: TEMP 98.1
[2017-09-05] MEDS ORDERED: NS 1,000 ML IV ONE (03:27)
[2017-09-05] MEDS ORDERED: LORazepam 2 MG/ML INJ IVP ONE (03:28)
[2017-09-05 03:42] LABS: PLATELET COUNT 196 10^3/uL (150-400)
[2017-09-05 06:22] VITALS: BP 130/84; PULSE 68; RESP 16; O2SAT 96
== END 2017-09-05 06:22 | disposition home or self-care (01) ==
DX: F41.9 Anxiety disorder, unspecified (principal); F10.920 Alcohol use, unspecified with intoxication, uncomplicated; E86.9 Volume depletion, unspecified
CPT/HCPCS: 96374; G0480; J2060

== ENCOUNTER 2017-09-07 14:58 | Emergency (ER) | payer MEDICAID ==
[2017-09-07] MEDS ORDERED: NS 1,000 ML IV ONE (16:37)
--- NOTE | 2017-09-07 16:42 | EDPHY ---
H & P Time Seen by Provider: 09/07/17 16:13 HPI/ROS: CHIEF COMPLAINT: Nausea, vomiting, alcoholism HISTORY OF PRESENT ILLNESS: 27-year-old male presents to the emergency department feeling nauseous and feeling extremely anxious and tremulous. The patient has a history of alcoholism. He has been drinking heavily although trying to taper himself down from this. He last drank at 1:45 a.m. This afternoon. He states that he has felt nauseous and has been dry heaving. No diarrhea. No hematemesis. No coffee-ground emesis. No abdominal pain. No headache. No chest pain or difficulty breathing. No reported trauma. Denies any other substance abuse. REVIEW OF SYSTEMS: Constitutional: No fever, no chills. Eyes: No double or blurry vision. ENT: No sore throat. Respiratory: No cough, no shortness of breath. Cardiac: No chest pain. Gastrointestinal: Nausea, vomiting. No abdominal pain or diarrhea. Genitourinary: No dysuria. Musculoskeletal: No neck or back pain. Skin: No rashes. Neurological: No headache. 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 Tremulous. Slightly anxious. Eyes: Pupils equal and round. Extraocular motions are all intact. ENT: Mouth: Mucous membranes appears dry. Respiratory: No wheezing, rhonchi, or rales, lungs are clear to auscultation. Cardiovascular: Regular rate and rhythm. Gastrointestinal: Abdomen is soft and nontender, no masses, no rebound or guarding, bowel sounds normal. Neurological: Alert and oriented x 3, cranial nerves II through XII grossly intact Skin: Warm and dry, no rashes. Musculoskeletal: Nontender to palpate along the cervical, thoracic or lumbar spine. Neck is supple. Extremities: Full range of motion and no peripheral edema. Psychiatric: Patient is oriented X 3, there is no agitation. Constitutional: Initial Vital Signs Temperature (C) 37.1 C 09/07/17 15:02 Heart Rate 81 09/07/17 15:02 Respiratory Rate 18 09/07/17 15:02 Blood Pressure 148/84 H 09/07/17 15:02 O2 Sat (%) 95 09/07/17 15:02 O2 Delivery Mode Room Air Allergies/Adverse Reactions: No Known Allergies Allergy (Verified 09/07/17 15:01) Home Medications: Medication Instructions Recorded Lexapro 11/09/16 Medical Decision Making ED Course/Re-evaluation: Laboratory studies have been drawn and are pending. Patient was given IV normal saline. Laboratory studies reveal alcohol of 113. Chemistries were unremarkable. CBC is normal. The patient received IV normal saline. He initially refused the IV Ativan. He did ultimately agree to the IV Ativan he understands that this will help raise the seizure threshold. He would [facility]. Patient did also receive IV normal saline given the history of vomiting and dry heaving. He did not vomit in the emergency department. The patient will be put in a cab to the [facility]. Differential Diagnosis: Including but not limited to electrolyte abnormality, alcohol withdrawal, seizures, substance abuse - Data Points Laboratory Results: Laboratory Results 09/07/17 16:40 09/07/17 16:40 09/07/17 09/07/17 16:40 16:40 WBC 5.59 10^3/uL 10^3/uL (3.80-9.50) RBC 5.43 10^6/uL 10^6/uL (4.40-6.38) Hgb 17.2 g/dL g/dL (13.7-17.5) Hct 47.9 % % (40.0-51.0) MCV 88.2 fL fL (81.5-99.8) MCH 31.7 pg pg (27.9-34.1) MCHC 35.9 g/dL g/dL (32.4-36.7) RDW 11.7 % % (11.5-15.2) Plt Count 193 10^3/uL 10^3/uL (150-400) MPV 9.2 fL fL (8.7-11.7) Neut % (Auto) 72.3 % % (39.3-74.2) Lymph % (Auto) 18.4 % % (15.0-45.0) Robertson % (Auto) 6.6 % % (4.5-13.0) Eos % (Auto) 1.8 % % (0.6-7.6) Baso % (Auto) 0.7 % % (0.3-1.7) Nucleat RBC Rel Count 0.0 % % (0.0-0.2) Absolute Neuts (auto) 4.04 10^3/uL 10^3/uL (1.70-6.50) Absolute Lymphs (auto) 1.03 10^3/uL 10^3/uL (1.00-3.00) Absolute Monos (auto) 0.37 10^3/uL 10^3/uL (0.30-0.80) Absolute Eos (auto) 0.10 10^3/uL 10^3/uL (0.03-0.40) Absolute Basos (auto) 0.04 10^3/uL 10^3/uL (0.02-0.10) Absolute Nucleated RBC 0.00 10^3/uL 10^3/uL (0-0.01) Immature Gran % 0.2 % % (0.0-1.1) Immature Gran # 0.01 10^3/uL 10^3/uL (0.00-0.10) Sodium 140 mEq/L mEq/L (135-145) Potassium 4.1 mEq/L mEq/L (3.5-5.2) Chloride 102 mEq/L mEq/L (97-110) Carbon Dioxide 22 mEq/l mEq/l (22-31) Anion Gap 16 mEq/L mEq/L (8-16) BUN 7 mg/dL mg/dL (7-23) Creatinine 0.6 mg/dL L mg/dL (0.7-1.3) Estimated GFR > 60 Glucose 87 mg/dL mg/dL (70-100) Calcium 9.7 mg/dL mg/dL (8.5-10.4) Ethyl Alcohol 113 mg/dL H mg/dL (0-10) Medications Given: Discontinued Medications Chlordiazepoxide (Librium 25 Mg Prepack#6) 1 btl TAKEHOME EDNOW ONE Stop: 09/07/17 18:04 Last Admin: 09/07/17 18:08 Dose: 1 btl Sodium Chloride (Ns) 1,000 mls @ 0 mls/hr IV ONCE ONE PRN Reason: Wide Open Stop: 09/07/17 16:38 Last Admin: 09/07/17 16:57 Dose: 1,000 mls Lorazepam (Ativan Injection) 1 mg IVP EDNOW ONE Stop: 09/07/17 17:16 Last Admin: 09/07/17 17:39 Dose: 1 mg Departure - Departure Disposition: Home, Routine, Self-Care Clinical Impression: Alcohol withdrawal Qualifiers: Complication of substance-induced condition: uncomplicated Qualified Code(s): F10.230 - Alcohol dependence with withdrawal, uncomplicated Condition: Good Instructions: Alcohol Withdrawal (ED) Additional Instructions: You were given 1 mg of Ativan IV in the emergency department. You are going to be discharged to the addiction recovery Center. Return to the emergency department if you have any other concerns. Referrals: [facility] [Outside] - As per Instructions
[2017-09-07 16:57] LABS: PLATELET COUNT 193 10^3/uL (150-400)
[2017-09-07] MEDS ORDERED: LORazepam 2 MG/ML INJ IVP ONE (17:15)
[2017-09-07 18:00] VITALS: BP 145/65; PULSE 77; RESP 16; TEMP 99; O2SAT 98
[2017-09-07] MEDS ORDERED: CHLORDIAZEPOXIDE 25MG PREPK#6 BTL TAKEHOME ONE (18:03)
== END 2017-09-07 18:09 | disposition home or self-care (01) ==
DX: F10.230 Alcohol dependence with withdrawal, uncomplicated (principal); F17.200 Nicotine dependence, unspecified, uncomplicated
CPT/HCPCS: 96374; G0480; J2060

== ENCOUNTER 2017-09-23 06:46 | Emergency (ER) | payer MEDICAID ==
[2017-09-23 06:58] VITALS: TEMP 98.2
--- NOTE | 2017-09-23 07:35 | EDPHY ---
H & P Stated Complaint: ETOH 1 pint a day pt states in withdrawal- pt drank 2 hours ago Time Seen by Provider: 09/23/17 07:35 HPI/ROS: CHIEF COMPLAINT: Alcohol dependence HISTORY OF PRESENT ILLNESS: The patient presents the ED with ongoing issues related alcohol dependence. The patient has a chronic daily drinker. He has been seen in the emergency department a number of times in the past for alcohol withdrawal. He has had [facility]. He currently is enrolled in alcoholics anonymous. The patient denies any fever, cough or congestion. The patient denies any abdominal pain, vomiting or diarrhea. REVIEW OF SYSTEMS: A comprehensive 10 point review of systems is otherwise negative aside from elements mentioned in the history of present illness. Source: Patient - Personal History Current Tetanus/Diphtheria Vaccine: No Current Tetanus Diphtheria and Acellular Pertussis (TDAP): No - Medical/Surgical History Hx Asthma: No Hx Chronic Respiratory Disease: No Hx Diabetes: No Hx Cardiac Disease: No Hx Renal Disease: No Hx Cirrhosis: No Hx Alcoholism: Yes Hx HIV/AIDS: No Hx Splenectomy or Spleen Trauma: No Other PMH: anxiety, ETOH - Social History Smoking Status: Current some day smoker - Physical Exam Exam: General Appearance: Alert, no distress Eyes: Pupils equal and round no pallor or injection ENT, Mouth: Mucous membranes moist Respiratory: There are no retractions, lungs are clear to auscultation Cardiovascular: Regular rate and rhythm Gastrointestinal: Abdomen is soft and nontender, no masses, bowel sounds normal Neurological: A&O, normal motor function, normal sensory exam, normal cranial nerves Skin: Warm and dry, no rashes Musculoskeletal: Neck is supple nontender Extremities: symmetrical, full range of motion Constitutional: Initial Vital Signs Temperature (C) 36.8 C 09/23/17 06:55 Heart Rate 62 09/23/17 06:55 Respiratory Rate 16 09/23/17 06:55 Blood Pressure 108/72 09/23/17 06:55 O2 Sat (%) 98 09/23/17 06:55 O2 Delivery Mode Room Air Allergies/Adverse Reactions: No Known Allergies Allergy (Verified 09/23/17 06:58) Home Medications: Medication Instructions Recorded Lexapro 11/09/16 Medical Decision Making ED Course/Re-evaluation: The patient presents to the ED with ongoing alcohol dependence. While the patient states he is having symptoms of withdrawal I find him to be resting comfortably in bed without tremor, tachycardia or vomiting. The patient does have alcohol on his breath and I feel that he most likely is experiencing alcohol intoxication. The patient has no other acute medical issues identified after his screening exam. The patient is interested in going to the [facility] and will be discharged there with a prepack of Librium. The patient is advised to return to the ED for the development of any vomiting, markedly worsening symptoms of withdrawal or other concerns. Differential Diagnosis: Differential diagnosis considered includes alcohol withdrawal, dehydration, alcohol intoxication Departure - Departure Disposition: Home, Routine, Self-Care Clinical Impression: Alcohol dependence Condition: Good Instructions: Alcohol Dependence (ED) Additional Instructions: 1. Please return to the emergency department for any worsening symptoms of withdrawal, vomiting or other concerns. 2. I recommend that you continue to seek services at the [facility] for your ongoing alcohol dependence and symptoms of withdrawal. Referrals: [facility] [Outside] - As per Instructions
[2017-09-23] MEDS ORDERED: CHLORDIAZEPOXIDE 25MG PREPK#6 BTL TAKEHOME ONE (07:41)
[2017-09-23 08:01] VITALS: BP 110/74; PULSE 64; RESP 18; O2SAT 96
== END 2017-09-23 08:12 | disposition home or self-care (01) ==
DX: F10.20 Alcohol dependence, uncomplicated (principal); F17.200 Nicotine dependence, unspecified, uncomplicated

== ENCOUNTER 2018-01-06 02:36 | Emergency (ER) | payer MEDICAID, OTHER ==
[2018-01-06] MEDS ORDERED: LORazepam 2 MG/ML INJ ONE (02:55)
[2018-01-06] MEDS ORDERED: LORazepam 2 MG/ML INJ IVP ONE (02:58)
[2018-01-06] MEDS ORDERED: NS 1,000 ML IV ONE ×2 (02:59→03:34)
--- NOTE | 2018-01-06 03:12 | EDPHY ---
H & P Stated Complaint: ETOH wants detox Time Seen by Provider: 01/06/18 02:44 HPI/ROS: HPI The patient presents with concern for alcohol withdrawals requesting alcohol detox. The patient is a daily drinker her usually drinking a 0.5 L of hard alcohol a day. His last drink was at 1:00 a.m. This morning. His roommate brought him into the emergency department per his request. The patient was last at an alcohol detox facility in [place] about 4 weeks ago and would like to return there. He is feeling tremulous and anxious. He feels palpitations. He has not had any vomiting. Review of old records demonstrates patient has been in the emergency department on several occasions for both alcohol intoxication and withdrawal. REVIEW OF SYSTEMS Constitutional: No fever, no chills. Eyes: No discharge. ENT: No sore throat. Cardiovascular: No chest pain, no palpitations. Respiratory: No cough, no shortness of breath. Gastrointestinal: No abdominal pain, no vomiting. Genitourinary: No hematuria. Musculoskeletal: No back pain. Skin: No rashes. Neurological: No headache. 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 PHYSICAL General Appearance: Alert, anxious Eyes: Pupils equal and round no pallor or injection ENT, Mouth: Mucous membranes moist Respiratory: There are no retractions, lungs are clear to auscultation Cardiovascular: Tachycardic rate and regular rhythm Gastrointestinal: Abdomen is soft and non-tender, no masses, bowel sounds normal Neurological: A&O, moves all extremities, fine hand tremor Skin: Warm and dry, no rashes Musculoskeletal: Neck is supple non tender Extremities: symmetrical, full range of motion Psychiatric: Patient is oriented X 3, there is no agitation Source: Patient Exam Limitations: No limitations - Personal History Current Tetanus/Diphtheria Vaccine: Yes Current Tetanus Diphtheria and Acellular Pertussis (TDAP): Yes - Medical/Surgical History Hx Asthma: No Hx Chronic Respiratory Disease: No Hx Diabetes: No Hx Cardiac Disease: No Hx Renal Disease: No Hx Cirrhosis: No Hx Alcoholism: Yes Hx HIV/AIDS: No Hx Splenectomy or Spleen Trauma: No Other PMH: anxiety, ETOH - Social History Smoking Status: Current some day smoker Constitutional: Initial Vital Signs Temperature (C) 36.7 C 01/06/18 02:39 Heart Rate 103 H 01/06/18 02:39 Respiratory Rate 16 01/06/18 02:39 Blood Pressure 128/87 H 01/06/18 02:39 O2 Sat (%) 97 01/06/18 02:39 O2 Delivery Mode Room Air O2 (L/minute) 1 Allergies/Adverse Reactions: No Known Allergies Allergy (Verified 01/06/18 02:42) Home Medications: Medication Instructions Recorded Lexapro 11/09/16 Adderall 10 MG (*) 01/06/18 Medical Decision Making Differential Diagnosis: 27-year-old male, longstanding history of alcohol abuse with history of withdrawals presents with alcohol withdrawal symptoms, asking for detox from alcohol. Here, he is treated with Ativan and IV fluids. I plan to check basic labs. He is requesting a specific detox facility and we will see what we can do to get him there. Differential diagnosis includes alcohol withdrawal, benzodiazepine withdrawal, polysubstance abuse. In the emergency department, IV line was established and patient was started on IV fluids. He did receive Ativan 2 mg IV for his tremors and agitation. Labs were checked and did reveal a markedly elevated ethanol level. He also has an anion gap acidosis which I suspect is related to alcoholic ketoacidosis given his heavy alcohol use. He was monitored for several hours. At about 6:15 a.m. We attempted to ambulate him but he was quite unsteady on his feet, I suspect due to a combination of the Ativan he received and his alcohol intoxication. At 7:00 a.m.,The patient can be discharged directly from the emergency department to the [facility]. The patient is willing to go there directly from the emergency department. As if case management is available, they could possibly meet with him to provide him with other resources for detox. We will need to walk him again and make sure he is able to walk with a steady gait prior to discharge. - Data Points Laboratory Results: Laboratory Results 01/06/18 03:01 01/06/18 03:01 01/06/18 01/06/18 01/06/18 03:01 03:01 02:50 WBC 8.15 10^3/uL 10^3/uL (3.80-9.50) RBC 5.57 10^6/uL 10^6/uL (4.40-6.38) Hgb 17.8 g/dL H g/dL (13.7-17.5) Hct 48.2 % % (40.0-51.0) MCV 86.5 fL fL (81.5-99.8) MCH 32.0 pg pg (27.9-34.1) MCHC 36.9 g/dL H g/dL (32.4-36.7) RDW 11.9 % % (11.5-15.2) Plt Count 266 10^3/uL 10^3/uL (150-400) MPV 8.9 fL fL (8.7-11.7) Neut % (Auto) 44.3 % % (39.3-74.2) Lymph % (Auto) 38.4 % % (15.0-45.0) [place] % (Auto) 14.5 % H % (4.5-13.0) Eos % (Auto) 1.6 % % (0.6-7.6) Baso % (Auto) 1.0 % % (0.3-1.7) Nucleat RBC Rel Count 0.0 % % (0.0-0.2) Absolute Neuts (auto) 3.61 10^3/uL 10^3/uL (1.70-6.50) Absolute Lymphs (auto) 3.13 10^3/uL H 10^3/uL (1.00-3.00) Absolute Monos (auto) 1.18 10^3/uL H 10^3/uL (0.30-0.80) Absolute Eos (auto) 0.13 10^3/uL 10^3/uL (0.03-0.40) Absolute Basos (auto) 0.08 10^3/uL 10^3/uL (0.02-0.10) Absolute Nucleated RBC 0.00 10^3/uL 10^3/uL (0-0.01) Immature Gran % 0.2 % % (0.0-1.1) Immature Gran # 0.02 10^3/uL 10^3/uL (0.00-0.10) Sodium 143 mEq/L mEq/L (135-145) Potassium 4.1 mEq/L mEq/L (3.3-5.0) Chloride 99 mEq/L mEq/L (97-110) Carbon Dioxide 20 mEq/l L mEq/l (22-31) Anion Gap 24 mEq/L H mEq/L (8-16) BUN 13 mg/dL mg/dL (7-23) Creatinine 0.8 mg/dL mg/dL (0.7-1.3) Estimated GFR > 60 Glucose 95 mg/dL mg/dL (70-100) Calcium 9.6 mg/dL mg/dL (8.5-10.4) Total Bilirubin 0.6 mg/dL mg/dL (0.1-1.4) Conjugated Bilirubin 0.3 mg/dL mg/dL (0.0-0.5) Unconjugated Bilirubin 0.3 mg/dL mg/dL (0.0-1.1) AST 132 IU/L H IU/L (17-59) ALT 73 IU/L H IU/L (21-72) Alkaline Phosphatase 79 IU/L IU/L (38-126) Total Protein 8.3 g/dL H g/dL (6.3-8.2) Albumin 5.3 g/dL H g/dL (3.5-5.0) Urine Opiates Screen NEGATIVE (NEGATIVE) Urine Barbiturates NEGATIVE (NEGATIVE) Ur Phencyclidine Scrn NEGATIVE (NEGATIVE) Ur Amphetamine Screen NEGATIVE (NEGATIVE) U Benzodiazepines Scrn NEGATIVE (NEGATIVE) Urine Cocaine Screen NON-NEGATIVE H (NEGATIVE) U Marijuana (THC) Screen NEGATIVE (NEGATIVE) Ethyl Alcohol 439 mg/dL H* mg/dL (0-10) Medications Given: Discontinued Medications Sodium Chloride (Ns) 1,000 mls @ 0 mls/hr IV ONCE ONE PRN Reason: Wide Open Stop: 01/06/18 03:00 Last Admin: 01/06/18 03:00 Dose: 1,000 mls Sodium Chloride (Ns) 1,000 mls @ 0 mls/hr IV EDNOW ONE; Wide Open PRN Reason: Protocol Stop: 01/06/18 03:35 Last Admin: 01/06/18 03:38 Dose: 1,000 mls Lorazepam (Ativan Injection) 2 mg IVP ONCE ONE Stop: 01/06/18 02:59 Last Admin: 01/06/18 03:01 Dose: 2 mg Departure - Departure Disposition: Home, Routine, Self-Care Clinical Impression: Alcoholic ketoacidosis Alcoholic intoxication Qualifiers: Complication of substance-induced condition: with delirium Qualified Code(s): F10.921 - Alcohol use, unspecified with intoxication delirium Condition: Good Instructions: Alcohol Intoxication (ED) Additional Instructions: Please return to the emergency department if your worse in any way. Referrals: [facility],. [Clinic] - As per Instructions
[2018-01-06 03:13] LABS: PLATELET COUNT 266 10^3/uL (150-400)
[2018-01-06 07:02] VITALS: BP 108/66
[2018-01-06] MEDS: CHLORDIAZEPOXIDE 25MG PREPK#6 BTL TAKEHOME ONE ×2 (07:28→07:48)
== END 2018-01-06 07:36 | disposition home or self-care (01) ==
DX: F10.921 Alcohol use, unspecified with intoxication delirium (principal); E87.2 Acidosis; F17.200 Nicotine dependence, unspecified, uncomplicated; E86.9 Volume depletion, unspecified
CPT/HCPCS: 80305; 96374; G0480; J2060